=== PATIENT | female | born 2005 | race Caucasian/White ===

== ENCOUNTER 2023-12-22 23:39 | Emergency (ER) | payer BC, SELFPAY ==
--- NOTE | ~2023-12-22 | XR_ITS ---
EXAMINATION: XR chest 2V DATE: 12/23/2023 00:10 INDICATION: Chest pain. Dizziness. TECHNIQUE: Frontal and lateral views of the chest were obtained. COMPARISON: None. FINDINGS: There is no pneumonia, pleural effusion, or pneumothorax. The heart size is normal. IMPRESSION: 1. No acute cardiopulmonary disease. Reviewed, dictated and finalized at location A.
[2023-12-22 23:44] VITALS: BP 145/105; PULSE 83; RESP 14; O2SAT 100
--- NOTE | 2023-12-22 23:48 | ECG_ITS ---
Measurements Intervals [place] Rate: 77 P: 17 [place]: 131 QRS: 62 QRSD: 85 T: 21 QT: 330 QTc: 375 Interpretive Statements SINUS RHYTHM NORMAL ELECTROCARDIOGRAM NO PREVIOUS ECG AVAILABLE FOR COMPARISON Electronically Signed On 12-23-2023 7:44:38 CDT by Zhou Fernandez M.D.
[2023-12-22 23:50] VITALS: TEMP 36.7
[2023-12-23] VITALS: PULSE 88
--- NOTE | 2023-12-23 00:06 | ED.CHESTPAIN ---
HPI - Chest Pain General Chief Complaint: Chest Pain Stated Complaint: chest pain Time Seen by Provider: 12/22/23 23:44 Source: patient Mode of arrival: ambulatory Limitations: no limitations History of Present Illness HPI narrative: This is a 18 year old female that presents to the ER for substernal chest pain. Ongoing since this afternoon. She has not taken anything for pain. The pain has been constant. Reports history of vaping which concerned her and prompted her to be seen for this complaint. Denies fever, cough, swelling in her legs, or shortness of breath. Related Data Home Medications Medication Instructions Recorded Confirmed hydroxyzine HCl 25 mg tablet 25 mg DAILY 12/23/23 12/23/23 propranolol 10 mg tablet 10 mg PO DAILY 12/23/23 12/23/23 Allergies Allergy/AdvReac Type Severity Reaction Status Date / Time No Known Allergies Allergy Verified 12/22/23 23:57 Review of Systems Review of Systems: CONSTITUTIONAL: Denies fever CARDIOVASCULAR: Reports chest pain. Denies edema. RESPIRATORY: Denies cough or dyspnea. PSYCHIATRIC: Reports anxiety All systems reviewed & are unremarkable except as noted in HPI and below PMFSH Past Medical History Medical History (Updated 12/23/23 @ 02:07 by Maureen Lawton PA-C) Anxiety HTN (hypertension) Social History Social History (Updated 12/23/23 @ 00:36 by Maureen Lawton PA-C) Smoking status: Current every day smoker Tobacco type: e-cigarettes/vaping Exam Narrative: GENERAL: Well-appearing, well-nourished, and in no acute distress. HEAD: Normocephalic, atraumatic. EYES: EOMI. CHEST: Clear to auscultation. No respiratory distress. No wheezes rales or rhonchi HEART: Regular rate and rhythm. No murmur heard. Normal peripheral pulses. EXTREMITIES: Normal range of motion. No edema. SKIN: Warm, dry, no rash. NEURO: No focal deficits. Alert and oriented x3. PSYCH: Normal mood and affect Course Course Emergency Course: Patient updated on her workup. Reports relief after Toradol and Pepcid Vital Signs Vital signs: Vital Signs Pulse Rate 83 12/22/23 23:44 Respiratory Rate 14 12/22/23 23:44 Blood Pressure 145/105 H 12/22/23 23:44 Pulse Oximetry 100 12/22/23 23:44 Oxygen Delivery Room Air 12/22/23 23:44 Temperature 98.0 F 12/22/23 23:50 Pulse Rate 88 12/23/23 00:00 Respiratory Rate 14 12/22/23 23:44 Blood Pressure 145/105 H 12/22/23 23:44 Pulse Oximetry 100 12/22/23 23:44 Oxygen Delivery Room Air 12/22/23 23:44 MDM - Chest Pain MDM Narrative Medical decision making narrative: Patient presents to the emergency department for chest pain ongoing since yesterday afternoon. She is afebrile and nontoxic appearing. Her vitals are stable. CBC metabolic panel without concerning findings. Lipase is normal. EKG without concerning changes in baseline troponin is negative. D-dimer is not elevated. Chest x-ray without acute cardiopulmonary abnormality. Patient updated on her workup. Reports relief after Toradol and Pepcid. Her heart score is 1. She is to follow up with her primary provider. She was given warnings to return to the ER Differential Diagnosis Differential diagnosis: Likely stable angina, atypical chest pain, costochondritis and other (pneumonia, PE, anxiety) Lab Data Attestation: I reviewed the patient's lab results. 12/22/23 23:59 12/22/23 23:59 Labs: Lab Results 12/22/23 12/22/23 12/22/23 Range/Units 23:59 23:59 23:59 WBC 6.7 (4.5-10.0) K/mm3 RBC 4.40 (4.2-5.4) M/mm3 Hgb 12.8 (12.0-15.0) g/dL Hct 39.0 (37.0-47.0) % MCV 88.6 (80-100) fl MCH 29.1 (26-34) pg MCHC 32.8 (32-36) g/dl RDW 12.8 (11.5-14.5) % Plt Count 240 (150-375) k/mm3 MPV 11.0 H (7.4-10.4) fl Immature Gran % (Auto) 0.3 (0-0.5) % Neut % (Auto) 40.5 L (45.5-73.1) % Lymph % (Auto) 50.4 H (18.3-44.2) % [place] % (Auto) 7.2
[2023-12-23 00:13] LABS: Basophils Percent Auto 0.6 % (0.2-1.2); Eosinophils Absolute Auto 0.1 K/mm3 (0-0.3); Hemoglobin 12.8 g/dL (12.0-15.0); Immature Granulocyte Absolute 0.02 K/mm3 (0.00-0.031); Immature Granulocyte Percent A 0.3 % (0-0.5); Lymphocytes Absolute Auto 3.37 K/mm3 (0.9-3.2); Lymphocytes Percent Auto 50.4 % (18.3-44.2); Mean Corpuscular HGB Conc 32.8 g/dl (32-36); Mean Corpuscular Hemoglobin 29.1 pg (26-34); Mean Corpuscular Volume 88.6 fl (80-100); Monocytes Absolute Auto 0.5 K/mm3 (0.1-0.6); Monocytes Percent Auto 7.2 % (2.6-8.5); Neutrophils Absolute Auto 2.7 K/mm3 (1.3-6.7); Neutrophils Percent Auto 40.5 % (45.5-73.1); Platelet Count Result 240 k/mm3 (150-375); Red Cell Distribution Width 12.8 % (11.5-14.5); White Blood Count 6.7 K/mm3 (4.5-10.0)
[2023-12-23 00:24] LABS: Alanine Aminotransferase 15 U/L (6-35); Albumin Level 4.2 g/dL (3.5-5.1); Alkaline Phosphatase 45 U/L (38-126); Anion Gap 7 mmol/L (4-12); Aspartate Amino Transferase 21 U/L (14-36); Bilirubin,Total 0.5 mg/dL (0.2-1.3); Blood Urea Nitrogen 10 mg/dL (7-17); Calcium 9.4 mg/dL (8.4-10.2); Carbon Dioxide 24 mmol/L (22-30); Chloride 106 mmol/L (98-107); Estimated CRCL calculation 77 ml/min; Estimated Glomerular Filt Rate > 60; Glucose 96 mg/dL (65-110); INR 0.9; Lipase 70 U/L (23-300); Potassium 3.6 mmol/L (3.4-5.0); Prothrombin Time 13.1 Seconds (11.1-14.7); Sodium 137 mmol/L (137-145)
[2023-12-23 00:25] LABS: Partial Thromboplastin Time 29.9 Seconds (22.3-36.8)
[2023-12-23 00:35] LABS: D Dimer < 0.27 ug/mL (<0.48)
[2023-12-23 00:36] LABS: Troponin I < 0.012 ng/mL (0.000-0.034)
[2023-12-23] MEDS: KETOROLAC 15 MG/ML VIAL (*BKC) IV PUSH (00:39)
[2023-12-23] MEDS: FAMOTIDINE 20 MG/2 ML VIAL IV PUSH (00:39)
[2023-12-23] MEDS: SODIUM CHLORIDE 0.9% IV 1,000 ML 999 ML IV CONT (00:40)
[2023-12-23 01:13] VITALS: PULSE 76; RESP 15; O2SAT 99
[2023-12-23 01:15] VITALS: PULSE 80; RESP 13; O2SAT 98
[2023-12-23 01:46] VITALS: BP 132/94; PULSE 72; RESP 14; O2SAT 100
== END 2023-12-23 02:16 | disposition home or self-care (01) ==
PROVIDERS: Emergency Provider Physician Assistant
DX: R07.2 Precordial pain (principal); I10 Essential (primary) hypertension; F41.9 Anxiety disorder, unspecified; F17.290 Nicotine dependence, other tobacco product, uncomplicated
CPT/HCPCS: 36415; 71046; 80053; 83690; 84484; 85025; 85380; 85610; 85730; 93005; 96361; 96374; 96375; 99284; J1885; J7030